=== PATIENT | female | born 1935 | race Caucasian/White ===

== ENCOUNTER 2017-08-17 02:57 | Emergency (ER) | payer MEDICARE, BC ==
[2017-08-17] MEDS ORDERED: Aspirin 81 MG Tab.Chew PO ONE (03:21)
[2017-08-17] MEDS ORDERED: Metoprolol Tartrate 5 MG/5 ML SDV IVPUSH ONE (03:32)
--- NOTE | 2017-08-17 03:38 | EDM.PDOC ---
ED HPI GENERAL MEDICAL PROBLEM - General Chief Complaint: Chest Pain Stated Complaint: CHEST PAIN Time Seen by Provider: 08/17/17 03:20 Source of Information: Reports: Patient History Limitations: Reports: No Limitations - History of Present Illness INITIAL COMMENTS - FREE TEXT/NARRATIVE: 81 years old female patient presented with chief complaint of chest pain started around 1 AM. Pressure-like sensation initially that has resolved and now feeling aching in the left side of his chest. Pain started when she was in the bed trying to fall asleep. No radiation. Presented when she sits still. [place] some palpitation and fast heart rate at that time but not anymore. Denies any shortness of breath. Denies any diaphoresis nausea or vomiting or dizziness.a history of cardiac bypass in 2003. She took 2 nitroglycerin at home which does not seem to be helping Chest Pain Score (Numeric/FACES): 2 - Related Data Allergies Allergy/AdvReac Type Severity Reaction Status Date / Time codeine AdvReac Nausea Verified 08/17/17 03:10 Home Meds: Home Meds Aspirin [Ziggy Chewable Aspirin] 1 tab PO DAILY 08/17/17 [History] Losartan Potassium 12.5 mg PO DAILY 08/17/17 [History] Metoprolol Succinate [Toprol XL] 1 tab PO BEDTIME 08/17/17 [History] Pravastatin [Pravachol] 1 tab PO BEDTIME 08/17/17 [History] Past Medical History HEENT History: Reports: Cataract Cardiovascular History: Reports: Bypass, CAD, High Cholesterol, Hypertension, Stents Gastrointestinal History: Reports: Colon Polyp Musculoskeletal History: Reports: Fracture Neurological History: Reports: Migraines Oncologic (Cancer) History: Reports: Breast - Past Surgical History HEENT Surgical History: Reports: Tonsillectomy Cardiovascular Surgical History: Reports: Coronary Artery Bypass, Coronary Artery Stent GI Surgical History: Reports: Appendectomy, Cholecystectomy, Colonoscopy Oncologic Surgical History: Reports: Lumpectomy Social & Family History - Tobacco Use Smoking Status *Q: Former Smoker Used Tobacco, but Quit: Yes Month Tobacco Last Used: 0 Tobacco Use Comment: hasn't smoked in 52 years. - Alcohol Use Days Per Week of Alcohol Use: 7 Number of Drinks Per Day: 2 Total Drinks Per Week: 14 - Recreational Drug Use Recreational Drug Use: No ED ROS GENERAL - Review of Systems Review Of Systems: ROS reveals no pertinent complaints other than HPI. Constitutional: Reports: No Symptoms HEENT: Reports: No Symptoms ED EXAM, GENERAL - Physical Exam Exam: See Below Exam Limited By: No Limitations General Appearance: Alert, WD/WN, No Apparent Distress Head: Atraumatic, Normocephalic Neck: Normal Inspection, Supple, Non-Tender, Full Range of Motion Respiratory/Chest: No Respiratory Distress, Lungs Clear, Normal Breath Sounds, No Accessory Muscle Use, Chest Non-Tender Cardiovascular: Normal Peripheral Pulses, No Edema, No Gallop, No JVD, No Murmur , No Rub, Tachycardia. No: Diastolic Murmur, Systolic Murmur, Gallop/S3 GI/Abdominal: Normal Bowel Sounds, Soft, Non-Tender, No Organomegaly, No Distention, No Abnormal Bruit, No Mass Extremities: Normal Inspection, Normal Range of Motion, Non-Tender, Normal Capillary Refill, No Pedal Edema Neurological: Alert, Oriented, CN II-XII Intact, Normal Cognition, Normal Gait, Normal Reflexes, No Motor/Sensory Deficits Psychiatric: Normal Affect, Normal Mood Skin Exam: Warm, Dry, Intact, Normal Color, No Rash Course - Vital Signs Last Recorded V/S: Last Vital Signs Temp 35.6 C 08/17/17 03:07 Pulse 66 08/17/17 04:11 Resp 16 08/17/17 04:11 BP 159/88 H 08/17/17 04:11 Pulse Ox 96 08/17/17 04:11 - Orders/Labs/Meds Orders: Active Orders 24 hr Category Date Time Status Cardiac Monitoring [RC] .As Directed Care 08/17/17 03:21 Active EKG Documentation Completion [RC] ASDIRECTED Care 08/17/17 03:52 Active EKG Documentation Completion [RC] ASDIRECTED Care 08/17/17 03:52 Active EKG Documentation Completion [RC] ASDIRECTED Care 08/17/17 03:54 Active Chest 1V Frontal [CR] Stat Exams 08/17/17 03:23 Taken EKG 12 Lead [EK] Urgent Ther 08/17/17 03:52 Ordered EKG 12 Lead [EK] Urgent Ther 08/17/17 03:52 Ordered EKG 12 Lead [EK] Urgent Ther 08/17/17 03:53 Ordered Labs: Laboratory Tests 08/17/17 08/17/17 Range/Units 03:27 03:27 WBC 5.9 (4.5-11.0) K/uL RBC 4.96 (3.30-5.50) M/uL Hgb 14.8 (12.0-15.0) g/dL Hct 43.9 (36.0-48.0) % MCV 89 (80-98) fL MCH 30 (27-31) pg MCHC 34 (32-36) % Plt Count 206 (150-400) K/uL Neut % (Auto) 43 (36-66) % Lymph % (Auto) 42 (24-44) % [place] % (Auto) 12 H (2-6) % Eos % (Auto) 2 (2-4) % Baso % (Auto) 1 (0-1) % Sodium 139 L (140-148) mmol/L Potassium 3.7 (3.6-5.2) mmol/L Chloride 104 (100-108) mmol/L Carbon Dioxide 27 (21-32) mmol/L Anion Gap 11.7 (5.0-14.0) mmol/L BUN 23 H (7-18) mg/dL Creatinine 0.9 (0.6-1.0) mg/dL Est Cr Clr Drug Dosing 43.77 mL/min Estimated GFR (MDRD) > 60 (>60) Glucose 108 H (74-106) mg/dL Calcium 8.4 L (8.5-10.1) mg/dL Magnesium 1.7 L (1.8-2.4) mg/dL Troponin I < 0.017 (0.000-0.056) ng/mL NT-Pro-B Natriuret Pep 588 H (5-450) pg/mL Meds: Medications Discontinued Medications Generic Name Dose Route Start Last Admin Trade Name Freq PRN Reason Stop Dose Admin Aspirin 324 mg 08/17/17 03:21 08/17/17 03:33 Aspirin PO 08/17/17 03:22 324 mg ONETIME ONE Administration Metoprolol Tartrate 5 mg 08/17/17 03:32 08/17/17 03:41 Lopressor IVPUSH 08/17/17 03:33 5 mg ONETIME ONE Administration Nitroglycerin 0.4 mg 08/17/17 04:02 08/17/17 04:09 Nitrostat SL 08/17/17 04:03 0.4 mg ONETIME ONE Administration - Re-Assessments/Exams Free Text/Narrative Re-Assessment/Exam: 08/17/17 03:36 Patient was seen and examined shortly after arrival. Stable. On monitoring manager. EKG shows atrial flutter was 2:1 AV block. Given 324 mg oral aspirin. Initially blood pressure was 212/over 100. History of whitecoat syndrome. Patient was given 5 mg IV metoprolol and one nitroglycerin. Heart rate slowed down and shows A. fib then converted back to sinus rhythm. Blood pressure markedly improved down to 158/57. Symptom completely resolved. Lab and imaging reviewed with the patient. No significant abnormalities. Magnesium is 1.7. EKG shows A. fib with RVR initially. No sign of acute ischemia. Last EKG shows sinus rhythm was bigeminy was noted. We do not have any available bed tonight at our hospital. Case was discussed with Dr. Akhtar hospitalist at [facility] and he accepted the transfer. Patient agrees with the plan. Stable for transfer for further management. Imaging reviewed with the patient. 08/17/17 04:42 Departure - Departure Time of Disposition: 04:48 Disposition: Left Without Being Seen 07 Clinical Impression: Atrial fibrillation with RVR, Chest pain Referrals: Marianne Caldera PA [Primary Care Provider] - Forms: ED Department Discharge - My Orders Last 24 Hours: My Active Orders 08/17/17 03:21 Cardiac Monitoring [RC] .As Directed 08/17/17 03:23 Chest 1V Frontal [CR] Stat 08/17/17 03:52 EKG Documentation Completion [RC] ASDIRECTED EKG Documentation Completion [RC] ASDIRECTED EKG 12 Lead [EK] Urgent EKG 12 Lead [EK] Urgent 08/17/17 03:53 EKG 12 Lead [EK] Urgent 08/17/17 03:54 EKG Documentation Completion [RC] ASDIRECTED - Assessment/Plan Last 24 Hours: My Active Orders 08/17/17 03:21 Cardiac Monitoring [RC] .As Directed 08/17/17 03:23 Chest 1V Frontal [CR] Stat 08/17/17 03:52 EKG Documentation Completion [RC] ASDIRECTED EKG Documentation Completion [RC] ASDIRECTED EKG 12 Lead [EK] Urgent EKG 12 Lead [EK] Urgent 08/17/17 03:53 EKG 12 Lead [EK] Urgent 08/17/17 03:54 EKG Documentation Completion [RC] ASDIRECTED Plan: Transferred [facility]
[2017-08-17] MEDS ORDERED: Nitroglycerin 0.4 MG Tab.SL SL ONE (04:02)
[2017-08-17 04:54] VITALS: BP 157/97
--- NOTE | 2017-08-17 09:01 | CR ---
Chest 1V Frontal HISTORY: Chest Pain COMPARISON: 03/06/2012 FINDINGS: Lungs appear clear and normally aerated. Heart size is felt to be within normal limits for the AP yifan hnique. Old median sternotomy changes and multiple mediastinal surgical clips are redemonstrated. No vascular redistribution or pleural fluid can be seen. Bony structures and soft tissues are unremarkab le. IMPRESSION: Old median sternotomy changes. No acute chest abnormality or significant interval change is identifie d.
== END 2017-08-17 05:30 ==
LOC: JP.ED 02:57
DX: I48.91 Unspecified atrial fibrillation (principal); I25.10 Atherosclerotic heart disease of native coronary artery without angina pectoris; E78.00 Pure hypercholesterolemia, unspecified; I10 Essential (primary) hypertension; G43.909 Migraine, unspecified, not intractable, without status migrainosus; Z95.5 Presence of coronary angioplasty implant and graft; Z95.1 Presence of aortocoronary bypass graft; Z90.49 Acquired absence of other specified parts of digestive tract; Z87.891 Personal history of nicotine dependence; Z79.82 Long term (current) use of aspirin; Z79.899 Other long term (current) drug therapy; Z88.5 Allergy status to narcotic agent
CPT/HCPCS: 36415; 71010; 80048; 83735; 83880; 84484; 85025; 93005; 93010; 93041; 96374; 99285; A9270; 99284; J3490

== ENCOUNTER 2018-03-26 14:39 | Observation (INO) | payer MEDICARE, BC ==
[2018-03-26] MEDS ORDERED: Aspirin 81 MG Tab.Chew PO ONE (14:46)
[2018-03-26] MEDS ORDERED: Nitroglycerin 0.4 MG Tab.SL SL PRN ×2 (14:51→17:38)
--- NOTE | 2018-03-26 15:22 | EDM.PDOC ---
ED HPI GENERAL MEDICAL PROBLEM - General Chief Complaint: Chest Pain Stated Complaint: CHEST PAIN Time Seen by Provider: 03/26/18 14:50 Source of Information: Reports: Patient, Family History Limitations: Reports: No Limitations - History of Present Illness INITIAL COMMENTS - FREE TEXT/NARRATIVE: Pt arrived after [place] where she developed chest tightness and rated her pain at a 8. She did have nitro along and she took one and she passed out very briefly. she then took 2 more nitros and she had no further problems. She was not sweaty. She did not vomit. She has a past history of a coronary bypass in 2003. She is painfree at this time. She was mildly sob. Onset: Today, Sudden, Other (pt was playing golf. ) Duration: Minutes:, Other ( she described this as chest tightness) Location: Reports: Chest Quality: Reports: Other ( tight. ) Severity: Moderate Worsens with: Reports: None Associated Symptoms: Reports: Chest Pain, Shortness of Breath Chest Pain Score (Numeric/FACES): 4 - Related Data Allergies Allergy/AdvReac Type Severity Reaction Status Date / Time codeine AdvReac Nausea Verified 08/17/17 03:10 Home Meds: Home Meds Aspirin [Ziggy Chewable Aspirin] 81 mg PO DAILY 08/17/17 [History] Losartan Potassium 12.5 mg PO DAILY 08/17/17 [History] Metoprolol Succinate [Toprol XL] 50 mg PO DAILY 08/17/17 [History] Pravastatin [Pravachol] 40 mg PO BEDTIME 08/17/17 [History] Amiodarone HCl [Pacerone] 400 mg PO DAILY 03/26/18 [History] Apixaban [Eliquis] 5 mg PO DAILY 03/26/18 [History] Calcium Carbonate/Vitamin D3 [Calcium 600 + Vit D 200] 1 tab PO DAILY 03/26/18 [ History] Furosemide 40 mg PO DAILY 03/26/18 [History] Nitroglycerin [Nitrostat] 0.4 mg PO ASDIRECTED 03/26/18 [History] Past Medical History HEENT History: Reports: Cataract Cardiovascular History: Reports: Bypass, CAD, High Cholesterol, Hypertension, Stents Respiratory History: Reports: Pneumonia, Recurrent Gastrointestinal History: Reports: Colon Polyp TURN LASTER History: Reports: Musculoskeletal History: Reports: Fracture Neurological History: Reports: Migraines Oncologic (Cancer) History: Reports: Breast - Past Surgical History HEENT Surgical History: Reports: Tonsillectomy Cardiovascular Surgical History: Reports: Coronary Artery Bypass, Coronary Artery Stent GI Surgical History: Reports: Appendectomy, Cholecystectomy, Colonoscopy Oncologic Surgical History: Reports: Lumpectomy Social & Family History - Tobacco Use Smoking Status *Q: Never Smoker - Caffeine Use Caffeine Use: Reports: None - Recreational Drug Use Recreational Drug Use: No ED ROS GENERAL - Review of Systems Review Of Systems: See Below Constitutional: Reports: Other (pt did have some chilling when she got back from the clinic today. She did have a cortisone injection in her left knee. ) HEENT: Reports: No Symptoms Respiratory: Reports: Shortness of Breath, Other ( She was mildly sob. ) Cardiovascular: Reports: No Symptoms Endocrine: Reports: No Symptoms GI/Abdominal: Reports: No Symptoms : Reports: No Symptoms Musculoskeletal: Reports: No Symptoms Skin: Reports: No Symptoms ED EXAM, GENERAL - Physical Exam Exam: See Below Free Text/Narrative:: pt arrived with a history of chest pain while playing golf. She took a nitro. and she did pass out. She then took 2 more nitros and tolerated them. She was alert and oriented on arrival and was painfree. Exam Limited By: No Limitations General Appearance: Alert, No Apparent Distress, Other (pupils are equal and reactive. ) Ears: Normal TMs Nose: Normal Inspection Throat/Mouth: Normal Inspection Head: Atraumatic Neck: Normal Inspection Respiratory/Chest: No Respiratory Distress Cardiovascular: Other ( slightly irreular rhythm. ) GI/Abdominal: Soft, Non-Tender (Female) Exam: Deferred Rectal (Female) Exam: Normal Exam Back Exam: Normal Inspection Extremities: Normal Inspection Neurological: Alert, Oriented, Normal Cognition Psychiatric: Normal Affect Course - Vital Signs Last Recorded V/S: Last Vital Signs Temp 35.3 C 03/26/18 14:50 Pulse 87 03/26/18 15:16 Resp 14 03/26/18 15:16 BP 102/61 03/26/18 15:16 Pulse Ox 96 03/26/18 15:16 - Orders/Labs/Meds Orders: Active Orders 24 hr Category Date Time Status EKG Documentation Completion [RC] ASDIRECTED Care 03/26/18 14:46 Active Chest 1V Frontal [CR] Stat Exams 03/26/18 14:47 Taken COMPREHENSIVE METABOLIC PN,CMP [CHEM] Urgent Lab 03/26/18 14:50 Received CREATINE KINASE,CK [CHEM] Urgent Lab 03/26/18 14:50 Received PRO B-TYPE NATRIUR PEPT,BNPPRO [CHEM] Urgent Lab 03/26/18 14:50 Received TROPONIN I [CHEM] Stat Lab 03/26/18 14:50 Received UA W/MICROSCOPIC [URIN] Urgent Lab 03/26/18 14:46 Ordered Nitroglycerin [Nitrostat] Med 03/26/18 14:51 Active 0.4 mg SL Q5M PRN EKG 12 Lead [EK] Routine Ther 03/26/18 14:46 Ordered Medication Orders Nitroglycerin (Nitrostat) 0.4 mg SL Q5M PRN PRN Reason: Chest Pain Labs: Laboratory Tests 03/26/18 Range/Units 14:50 WBC 10.8 (4.5-11.0) K/uL RBC 4.83 (3.30-5.50) M/uL Hgb 14.4 (12.0-15.0) g/dL Hct 43.0 (36.0-48.0) % MCV 89 (80-98) fL MCH 30 (27-31) pg MCHC 34 (32-36) % Plt Count 231 (150-400) K/uL Neut % (Auto) 75 H (36-66) % Lymph % (Auto) 15 L (24-44) % [place] % (Auto) 9 H (2-6) % Eos % (Auto) 0 L (2-4) % Baso % (Auto) 0 (0-1) % Meds: Medications Generic Name Dose Route Start Last Admin Trade Name Freq PRN Reason Stop Dose Admin Nitroglycerin 0.4 mg 03/26/18 14:51 Nitrostat SL Q5M PRN Chest Pain Discontinued Medications Generic Name Dose Route Start Last Admin Trade Name Freq PRN Reason Stop Dose Admin Aspirin 324 mg 03/26/18 14:46 03/26/18 14:54 Aspirin PO 03/26/18 14:47 324 mg ONETIME ONE Administration - Re-Assessments/Exams Free Text/Narrative Re-Assessment/Exam: 03/26/18 15:47 pt had a normal trop. She has a left bundle branch block. She had some chills earlier after she got the cortisone injection. She had a injection in her left knee. Departure - Departure Time of Disposition: 15:48 Disposition: Admitted As Inpatient 68 Condition: Fair Clinical Impression: Exercise-induced angina, Syncope Referrals: PCP,None [Ordering Only Provider] - Care Plan Goals: admit to Dr watkins. - My Orders Last 24 Hours: My Active Orders 03/26/18 14:46 EKG Documentation Completion [RC] ASDIRECTED UA W/MICROSCOPIC [URIN] Urgent EKG 12 Lead [EK] Routine 03/26/18 14:47 Chest 1V Frontal [CR] Stat 03/26/18 14:50 COMPREHENSIVE METABOLIC PN,CMP [CHEM] Urgent CREATINE KINASE,CK [CHEM] Urgent PRO B-TYPE NATRIUR PEPT,BNPPRO [CHEM] Urgent TROPONIN I [CHEM] Stat 03/26/18 14:51 Nitroglycerin [Nitrostat] 0.4 mg SL Q5M PRN - Assessment/Plan Last 24 Hours: My Active Orders 03/26/18 14:46 EKG Documentation Completion [RC] ASDIRECTED UA W/MICROSCOPIC [URIN] Urgent EKG 12 Lead [EK] Routine 03/26/18 14:47 Chest 1V Frontal [CR] Stat 03/26/18 14:50 COMPREHENSIVE METABOLIC PN,CMP [CHEM] Urgent CREATINE KINASE,CK [CHEM] Urgent PRO B-TYPE NATRIUR PEPT,BNPPRO [CHEM] Urgent TROPONIN I [CHEM] Stat 03/26/18 14:51 Nitroglycerin [Nitrostat] 0.4 mg SL Q5M PRN
--- NOTE | 2018-03-26 16:37 | PCM.HP ---
H&P History of Present Illness - General Date of Service: 03/26/18 Admit Problem/Dx: Admission Diagnosis/Problem Admission Diagnosis/Problem Chest pain Source of Information: Patient, Family, Provider, RN Notes Reviewed History Limitations: Reports: No Limitations - History of Present Illness Initial Comments - Free Text/Narative: Ms. Gallegos is an 82-year-old woman who is admitted through the emergency department observation status for further evaluation and management of chest pain as well as a syncopal episode. She has a known history of coronary artery disease and is status post coronary artery bypass surgery done approximately 14 years ago. She had difficulty with claudication earlier this year and approximately 2 months ago underwent coronary angiogram, she was told at that time that the results look good and she did not require further intervention. She did have angioplasty procedures done in both legs with very good result and resolution of claudication. She does take nitroglycerin for episodes of chest pain a few times each year. She was out golfing this afternoon when she noted symptoms of mild shortness of breath with activity that she usually would not have. Half hour after that started she began to experience chest pressure, over the course of a half hour the chest pressure became very severe. The chest pressure did not radiate and remained fairly constant throughout that time.she decided she should do something about the pain and decided to stop her golf round. She did take one sublingual nitroglycerin with no significant improvement in symptoms so she took a second one. She became fairly nauseated and then had a syncopal episode that lasted 1-2 minutes. After that she was brought into the emergency department and on the drive into the third nitroglycerin which did seem to help somewhat. She still had some chest pain when she arrived at the emergency department but it resolved shortly thereafter. Initial troponin level is within normal range, EKG shows a left bundle branch block which is not new. Risk factors for coronary artery disease include a positive family history, hypertension, and hypercholesterolemia. Calculated heart score is 7 . Chest Pain Score (Numeric/FACES): 4 - Related Data Allergies/Adverse Reactions: Allergies Allergy/AdvReac Type Severity Reaction Status Date / Time codeine AdvReac Nausea Verified 08/17/17 03:10 Home Medications: Home Meds Aspirin [Ziggy Chewable Aspirin] 81 mg PO DAILY 08/17/17 [History] Losartan Potassium 12.5 mg PO DAILY 08/17/17 [History] Metoprolol Succinate [Toprol XL] 50 mg PO DAILY 08/17/17 [History] Pravastatin [Pravachol] 40 mg PO BEDTIME 08/17/17 [History] Amiodarone HCl [Pacerone] 400 mg PO DAILY 03/26/18 [History] Apixaban [Eliquis] 5 mg PO DAILY 03/26/18 [History] Calcium Carbonate/Vitamin D3 [Calcium 600 + Vit D 200] 1 tab PO DAILY 03/26/18 [ History] Furosemide 40 mg PO DAILY 03/26/18 [History] Nitroglycerin [Nitrostat] 0.4 mg PO ASDIRECTED 03/26/18 [History] Past Medical History HEENT History: Reports: Cataract Cardiovascular History: Reports: Bypass, CAD, High Cholesterol, Hypertension, Stents Respiratory History: Reports: Pneumonia, Recurrent Gastrointestinal History: Reports: Colon Polyp [employer] History: Reports: Musculoskeletal History: Reports: Fracture Neurological History: Reports: Migraines Oncologic (Cancer) History: Reports: Breast - Past Surgical History HEENT Surgical History: Reports: Tonsillectomy Cardiovascular Surgical History: Reports: Coronary Artery Bypass, Coronary Artery Stent GI Surgical History: Reports: Appendectomy, Cholecystectomy, Colonoscopy Oncologic Surgical History: Reports: Lumpectomy Social & Family History - Tobacco Use Smoking Status *Q: Never Smoker - Caffeine Use Caffeine Use: Reports: None - Recreational Drug Use Recreational Drug Use: No H&P Review of Systems - Review of Systems: Review Of Systems: See Below General: Denies: Fever, Chills, Weakness, Diaphoresis HEENT: Reports: No Symptoms Pulmonary: Reports: Shortness of Breath. Denies: Wheezing, Pleuritic Chest Pain , Cough, Sputum, Hemoptysis Cardiovascular: Reports: Chest Pain, Syncope. Denies: Palpitations, Dyspnea on Exertion, Orthopnea, PND, Edema, Lightheadedness Gastrointestinal: Reports: Nausea. Denies: Abdominal Pain, Constipation, Diarrhea, Decreased Appetite, Difficulty Swallowing, Distension, Vomiting Genitourinary: Reports: No Symptoms Musculoskeletal: Reports: No Symptoms Skin: Reports: No Symptoms Psychiatric: Reports: No Symptoms Neurological: Reports: No Symptoms Hematologic/Lymphatic: Reports: No Symptoms Immunologic: Reports: No Symptoms Exam - Exam Exam: See Below - Vital Signs Vital Signs: Last Vital Signs Temp 95.6 F 05/15/18 14:50 Pulse 87 03/26/18 15:16 Resp 14 03/26/18 15:16 BP 102/61 03/26/18 15:16 Pulse Ox 96 03/26/18 15:16 Weight: 145 lb - Exam Quality Assessment: DVT Prophylaxis General: Alert, Oriented, Cooperative HEENT: Conjunctiva Clear, Hearing Intact, Mucosa Moist & [place], Normal Nasal Septum, Posterior Pharynx Clear, Pupils Equal Neck: Supple, Trachea Midline, +2 Carotid Pulse wo Bruit Lungs: Clear to Auscultation, Normal Respiratory Effort Cardiovascular: Regular Rate, Regular Rhythm, Normal S1, Normal S2. No: Systolic Murmur, Diastolic Murmur GI/Abdominal Exam: Soft, Non-Tender, No Organomegaly, No Distention Back Exam: Normal Inspection, Full Range of Motion Extremities: Non-Tender, No Pedal Edema Skin: Warm, Dry, Intact Neurological: Cranial Nerves Intact, Strength Equal Bilateral, Normal Speech, Normal Tone, Sensation Intact. No: Focal Deficit Neuro Extensive - Mental Status: Alert, Oriented x3, Normal Mood/Affect, Normal Cognition, Memory Intact - Patient Data Lab Results Last 24 hrs: Laboratory Results - last 24 hr 03/26/18 03/26/18 03/26/18 Range/Units 14:50 14:50 14:50 WBC 10.8 (4.5-11.0) K/uL RBC 4.83 (3.30-5.50) M/uL Hgb 14.4 (12.0-15.0) g/dL Hct 43.0 (36.0-48.0) % MCV 89 (80-98) fL MCH 30 (27-31) pg MCHC 34 (32-36) % Plt Count 231 (150-400) K/uL Neut % (Auto) 75 H (36-66) % Lymph % (Auto) 15 L (24-44) % [place] % (Auto) 9 H (2-6) % Eos % (Auto) 0 L (2-4) % Baso % (Auto) 0 (0-1) % Sodium 142 (140-148) mmol/L Potassium 3.6 (3.6-5.2) mmol/L Chloride 102 (100-108) mmol/L Carbon Dioxide 30 (21-32) mmol/L Anion Gap 10.5 (5.0-14.0) mmol/L BUN 31 H (7-18) mg/dL Creatinine 1.2 H (0.6-1.0) mg/dL Est Cr Clr Drug Dosing 32.29 mL/min Estimated GFR (MDRD) 43 L (>60) Glucose 104 (74-106) mg/dL Calcium 8.2 L (8.5-10.1) mg/dL Total Bilirubin 1.5 H (0.2-1.0) mg/dL AST 20 (15-37) U/L ALT 24 (12-78) U/L Alkaline Phosphatase 88 (46-116) U/L Creatine Kinase 79 (26-192) U/L Troponin I < 0.017 (0.000-0.056) ng/mL NT-Pro-B Natriuret Pep 815 H (5-450) pg/mL Total Protein 7.1 (6.4-8.2) g/dL Albumin 3.7 (3.4-5.0) g/dL Globulin 3.4 (2.3-3.5) g/dL Albumin/Globulin Ratio 1.1 L (1.2-2.2) Urine Color Urine Appearance Urine pH (4.5-8.0) Ur Specific [place] (1.008-1.030) Urine Protein (NEGATIVE) mg/dL Urine Glucose (UA) (NEGATIVE) mg/dL Urine Ketones (NEGATIVE) mg/dL Urine Occult Blood (NEGATIVE) Urine Nitrite (NEGATIVE) Urine Bilirubin (NEGATIVE) Urine Urobilinogen (NORMAL) mg/dL Ur Leukocyte Esterase (NEGATIVE) Urine RBC (0-5) Urine WBC (0-5) Ur Epithelial Cells Amorphous Sediment Urine Bacteria Urine Mucus 03/26/18 Range/Units 15:33 WBC (4.5-11.0) K/uL RBC (3.30-5.50) M/uL Hgb (12.0-15.0) g/dL Hct (36.0-48.0) % MCV (80-98) fL MCH (27-31) pg MCHC (32-36) % Plt Count (150-400) K/uL Neut % (Auto) (36-66) % Lymph % (Auto) (24-44) % [place] % (Auto) (2-6) % Eos % (Auto) (2-4) % Baso % (Auto) (0-1) % Sodium (140-148) mmol/L Potassium (3.6-5.2) mmol/L Chloride (100-108) mmol/L Carbon Dioxide (21-32) mmol/L Anion Gap (5.0-14.0) mmol/L BUN (7-18) mg/dL Creatinine (0.6-1.0) mg/dL Est Cr Clr Drug Dosing mL/min Estimated GFR (MDRD) (>60) Glucose (74-106) mg/dL Calcium (8.5-10.1) mg/dL Total Bilirubin (0.2-1.0) mg/dL AST (15-37) U/L ALT (12-78) U/L Alkaline Phosphatase (46-116) U/L Creatine Kinase (26-192) U/L Troponin I (0.000-0.056) ng/mL NT-Pro-B Natriuret Pep (5-450) pg/mL Total Protein (6.4-8.2) g/dL Albumin (3.4-5.0) g/dL Globulin (2.3-3.5) g/dL Albumin/Globulin Ratio (1.2-2.2) Urine Color Yellow Urine Appearance Slightly cloudy Urine pH 5.0 (4.5-8.0) Ur Specific [place] 1.020 (1.008-1.030) Urine Protein Negative (NEGATIVE) mg/dL Urine Glucose (UA) Normal (NEGATIVE) mg/dL Urine Ketones Negative (NEGATIVE) mg/dL Urine Occult Blood Moderate (NEGATIVE) Urine Nitrite Negative (NEGATIVE) Urine Bilirubin Negative (NEGATIVE) Urine Urobilinogen Normal (NORMAL) mg/dL Ur Leukocyte Esterase Moderate (NEGATIVE) Urine RBC 0-5 (0-5) Urine WBC 0-5 (0-5) Ur Epithelial Cells Rare Amorphous Sediment Not seen Urine Bacteria Rare Urine Mucus Not seen Result Diagrams: 03/26/18 14:50 03/26/18 14:50 *Q Meaningful Use (ADM) - VTE *Q VTE Pharmacological Contraindications *Q: High INR Value - VTE Risk Assess *Q Each Risk Factor Represents 1 Point: None Total Score 1 Point Risk Factors: 0 Each Risk Factor Represents 2 Points: None Total Score 2 Point Risk Factors: 0 Each Risk Factor Represents 3 Points: Age 75 Years or Greater Total Score 3 Point Risk Factors: 3 Each Risk Factor Represents 5 Points: None Total Score 5 Point Risk Factors: 0 Venous Thromboembolism Risk Factor Score *Q: 3 Problem List Initiated/Reviewed/Updated: Yes Orders Last 24hrs: Active Orders 24 hr Category Date Time Status Patient Status Manage Transfer [TRANSFER] Routine ADT 03/26/18 16:28 Active EKG Documentation Completion [RC] ASDIRECTED Care 03/26/18 14:46 Active Chest 1V Frontal [CR] Stat Exams 03/26/18 14:47 Taken UA W/MICROSCOPIC [URIN] Urgent Lab 03/26/18 15:33 Ordered Nitroglycerin [Nitrostat] Med 03/26/18 14:51 Active 0.4 mg SL Q5M PRN Resuscitation Status Routine Resus Stat 03/26/18 16:31 Ordered EKG 12 Lead [EK] Routine Ther 03/26/18 14:46 Ordered Medication Orders Nitroglycerin (Nitrostat) 0.4 mg SL Q5M PRN PRN Reason: Chest Pain Assessment/Plan Comment:: ASSESSMENT AND PLAN CHEST PAIN-occurring in this 82-year-old woman with a known history of coronary artery disease. -Observation admission -Obtain records from recent angiogram -Nitroglycerin and morphine as needed for recurrent pain -Serial troponin levels -Exercise Cardiolite study in a.m. SYNCOPE-occurred in the setting of chest pain and having taken to sublingual nitroglycerin, likely secondary to medication effect -Cardiac monitoring -Orthostatic vital signs HYPERTENSION -Continue outpatient medications PERIPHERAL ARTERIAL DISEASE-status post angioplasty in each leg, with good result in resolution of claudication PAROXYSMAL ATRIAL FIBRILLATION -Continue outpatient therapy with amiodarone and Eliquis MAINTENANCE ISSUES -DVT prophylaxis;Current therapy with Eliquis which should provide adequate DVT prophylaxis -GI prophylaxis;Not indicated -Pratt catheter;Not indicated -Nutrition;2 g sodium diet -Nicotine dependence;Not required CODE STATUS-FULL CODE ADMISSION STATUS-this patient will be admitted to observation status, expect no more than a one night hospital stay for evaluation and management of problems as outlined above. DISPOSITION-anticipate discharge to home after the hospital stay. PRIMARY CARE PROVIDER-Ade Caldera
[2018-03-26] MEDS ORDERED: Sodium Chloride 0.9% 10 ML Syringe FLUSH PRN (17:38)
[2018-03-26] MEDS ORDERED: Ondansetron 4 MG/2 ML SDV IV PRN (17:38)
[2018-03-26] MEDS ORDERED: Morphine 2 MG/ML Syringe IVPUSH PRN (17:38)
[2018-03-26] MEDS ORDERED: Pravastatin 20 MG Tab PO SCH (21:00)
[2018-03-26] MEDS: Acetaminophen 325 MG Tab PO PRN (21:28)
[2018-03-27] MEDS: Acetaminophen 325 MG Tab PO PRN (07:46)
[2018-03-27] MEDS ORDERED: Furosemide 40 MG Tab**POM PO SCH (09:00)
[2018-03-27] MEDS ORDERED: Losartan 50 MG Tab PO SCH (09:00)
[2018-03-27] MEDS ORDERED: Aspirin 81 MG Tab.Chew PO SCH (09:00)
[2018-03-27] MEDS ORDERED: Amiodarone 200 MG Tab PO SCH (09:00)
[2018-03-27] MEDS ORDERED: APIXABAN 5 MG PO SCH (09:00)
[2018-03-27] MEDS ORDERED: Aspirin 81 MG Tab.EC PO SCH (09:00)
--- NOTE | 2018-03-27 09:24 | PCM.PN ---
- General Info Date of Service: 03/27/18 Subjective Update: Ms. Gallegos has been stable since admission, no further symptoms of chest pain or pressure. No significant dysrhythmias identified thus far and she has been hemodynamically stable. Serial troponin levels have been within normal range. She is experiencing some soreness in her left shoulder, likely that she hit this when she experienced her syncopal episode. Exercise Cardiolite study is pending - Review of Systems General: Denies: Fever, Weakness, Chills Cardiovascular: Reports: No Symptoms Gastrointestinal: Reports: No Symptoms Genitourinary: Reports: No Symptoms Musculoskeletal: Reports: Shoulder Pain - Patient Data Vitals - Most Recent: Last Vital Signs Temp 96.4 F 03/27/18 07:00 Pulse 73 03/27/18 07:00 Resp 18 03/27/18 07:00 BP 150/72 H 03/27/18 07:00 Pulse Ox 94 L 03/27/18 07:00 Orthostatic Blood Pressure [ 172/84 Standing] Orthostatic Blood Pressure [ 170/75 Sitting] Orthostatic Blood Pressure [ 155/65 Supine] Weight - Most Recent: 150 lb I&O - Last 24 Hours: Intake & Output 03/26/18 03/27/18 03/27/18 22:59 06:59 14:59 Intake Total 480 Balance 480 Lab Results Last 24 Hours: Laboratory Results - last 24 hr 03/26/18 03/26/18 03/26/18 Range/Units 14:50 14:50 14:50 WBC 10.8 (4.5-11.0) K/uL RBC 4.83 (3.30-5.50) M/uL Hgb 14.4 (12.0-15.0) g/dL Hct 43.0 (36.0-48.0) % MCV 89 (80-98) fL MCH 30 (27-31) pg MCHC 34 (32-36) % Plt Count 231 (150-400) K/uL Neut % (Auto) 75 H (36-66) % Lymph % (Auto) 15 L (24-44) % [place] % (Auto) 9 H (2-6) % Eos % (Auto) 0 L (2-4) % Baso % (Auto) 0 (0-1) % Sodium 142 (140-148) mmol/L Potassium 3.6 (3.6-5.2) mmol/L Chloride 102 (100-108) mmol/L Carbon Dioxide 30 (21-32) mmol/L Anion Gap 10.5 (5.0-14.0) mmol/L BUN 31 H (7-18) mg/dL Creatinine 1.2 H (0.6-1.0) mg/dL Est Cr Clr Drug Dosing 32.29 mL/min Estimated GFR (MDRD) 43 L (>60) Glucose 104 (74-106) mg/dL Calcium 8.2 L (8.5-10.1) mg/dL Total Bilirubin 1.5 H (0.2-1.0) mg/dL AST 20 (15-37) U/L ALT 24 (12-78) U/L Alkaline Phosphatase 88 (46-116) U/L Creatine Kinase 79 (26-192) U/L Troponin I < 0.017 (0.000-0.056) ng/mL NT-Pro-B Natriuret Pep 815 H (5-450) pg/mL Total Protein 7.1 (6.4-8.2) g/dL Albumin 3.7 (3.4-5.0) g/dL Globulin 3.4 (2.3-3.5) g/dL Albumin/Globulin Ratio 1.1 L (1.2-2.2) Urine Color Urine Appearance Urine pH (4.5-8.0) Ur Specific [place] (1.008-1.030) Urine Protein (NEGATIVE) mg/dL Urine Glucose (UA) (NEGATIVE) mg/dL Urine Ketones (NEGATIVE) mg/dL Urine Occult Blood (NEGATIVE) Urine Nitrite (NEGATIVE) Urine Bilirubin (NEGATIVE) Urine Urobilinogen (NORMAL) mg/dL Ur Leukocyte Esterase (NEGATIVE) Urine RBC (0-5) Urine WBC (0-5) Ur Epithelial Cells Amorphous Sediment Urine Bacteria Urine Mucus 03/26/18 03/26/18 03/27/18 Range/Units 15:33 21:15 04:30 WBC (4.5-11.0) K/uL RBC (3.30-5.50) M/uL Hgb (12.0-15.0) g/dL Hct (36.0-48.0) % MCV (80-98) fL MCH (27-31) pg MCHC (32-36) % Plt Count (150-400) K/uL Neut % (Auto) (36-66) % Lymph % (Auto) (24-44) % [place] % (Auto) (2-6) % Eos % (Auto) (2-4) % Baso % (Auto) (0-1) % Sodium (140-148) mmol/L Potassium (3.6-5.2) mmol/L Chloride (100-108) mmol/L Carbon Dioxide (21-32) mmol/L Anion Gap (5.0-14.0) mmol/L BUN (7-18) mg/dL Creatinine (0.6-1.0) mg/dL Est Cr Clr Drug Dosing mL/min Estimated GFR (MDRD) (>60) Glucose (74-106) mg/dL Calcium (8.5-10.1) mg/dL Total Bilirubin (0.2-1.0) mg/dL AST (15-37) U/L ALT (12-78) U/L Alkaline Phosphatase (46-116) U/L Creatine Kinase (26-192) U/L Troponin I < 0.017 < 0.017 (0.000-0.056) ng/mL NT-Pro-B Natriuret Pep (5-450) pg/mL Total Protein (6.4-8.2) g/dL Albumin (3.4-5.0) g/dL Globulin (2.3-3.5) g/dL Albumin/Globulin Ratio (1.2-2.2) Urine Color Yellow Urine Appearance Slightly cloudy Urine pH 5.0 (4.5-8.0) Ur Specific [place] 1.020 (1.008-1.030) Urine Protein Negative (NEGATIVE) mg/dL Urine Glucose (UA) Normal (NEGATIVE) mg/dL Urine Ketones Negative (NEGATIVE) mg/dL Urine Occult Blood Moderate (NEGATIVE) Urine Nitrite Negative (NEGATIVE) Urine Bilirubin Negative (NEGATIVE) Urine Urobilinogen Normal (NORMAL) mg/dL Ur Leukocyte Esterase Moderate (NEGATIVE) Urine RBC 0-5 (0-5) Urine WBC 0-5 (0-5) Ur Epithelial Cells Rare Amorphous Sediment Not seen Urine Bacteria Rare Urine Mucus Not seen Med Orders - Current: Current Medications Acetaminophen (Tylenol) 650 mg PO Q4H PRN PRN Reason: Pain (Mild 1-3)/fever Last Admin: 03/27/18 07:46 Dose: 650 mg Amiodarone HCl (Cordarone) 400 mg PO DAILY DARSHAN Aspirin (Halfprin) 81 mg PO DAILY DARSHAN Furosemide (Lasix) 40 mg PO DAILY DARSHAN Losartan Potassium (Cozaar) 12.5 mg PO DAILY DARSHAN Morphine Sulfate (Morphine) 2 mg IVPUSH Q30M PRN PRN Reason: Chest Pain Nitroglycerin (Nitrostat) 0.4 mg SL Q5M PRN PRN Reason: Chest Pain Stop: 03/27/18 16:34 Apixaban (Elicuis) 5 (Mg TabPom) 5 mg PO DAILY DARSHAN Ondansetron HCl (Zofran) 4 mg IV Q4H PRN PRN Reason: Nausea/Vomiting Pravastatin Sodium (Pravachol) 40 mg PO BEDTIME DARSHAN Senna/Docusate Sodium (Senna Plus) 1 tab PO BID PRN PRN Reason: Constipation Sodium Chloride (Saline Flush) 10 ml FLUSH ASDIRECTED PRN PRN Reason: Keep Vein Open Discontinued Medications Aspirin (Aspirin) 324 mg PO ONETIME ONE Stop: 03/26/18 14:47 Last Admin: 03/26/18 14:54 Dose: 324 mg Aspirin (Aspirin) 81 mg PO DAILY DARSHAN Nitroglycerin (Nitrostat) 0.4 mg SL Q5M PRN PRN Reason: Chest Pain - Exam Quality Assessment: DVT Prophylaxis General: Alert, Oriented, Cooperative, No Acute Distress Lungs: Clear to Auscultation, Normal Respiratory Effort Cardiovascular: Regular Rate, Regular Rhythm, No Murmurs GI/Abdominal Exam: Soft, Non-Tender, No Organomegaly, No Distention Extremities: Non-Tender, No Pedal Edema Skin: Warm, Dry, Intact - Problem List Review Problem List Initiated/Reviewed/Updated: Yes - My Orders Last 24 Hours: My Active Orders 03/26/18 16:31 Resuscitation Status Routine 03/26/18 17:38 Patient Status [ADT] Routine Ambulate [RC] QID Cardiac Education [RC] Click to Edit Cardiac Monitoring [RC] Q6HR Height and Weight [RC] DAILY Intake and Output [RC] QSHIFT Notify Provider Vital Signs [RC] ASDIRECTED Orthostatic Vital Signs [RC] .PRN Oxygen Therapy [RC] PRN Up With Assistance [RC] ASDIRECTED Up to Chair [RC] QID VTE/DVT Education [RC] Per Unit Routine Vital Signs [RC] Q4H Acetaminophen [Tylenol] 650 mg PO Q4H PRN Docusate Sodium/Sennosides [Senna Plus] 1 tab PO BID PRN Morphine 2 mg IVPUSH Q30M PRN Nitroglycerin [Nitrostat] 0.4 mg SL Q5M PRN Ondansetron [Zofran] 4 mg IV Q4H PRN Sodium Chloride 0.9% [Saline Flush] 10 ml FLUSH ASDIRECTED PRN Saline Lock Insert [OM.PC] Routine VTE Pharmacological Contraindications [AST] Per Unit Routine 03/26/18 21:00 Pravastatin [Pravachol] 40 mg PO BEDTIME 03/26/18 Dinner 2 Gram Sodium Diet [DIET] 03/27/18 09:00 Amiodarone [Cordarone] 400 mg PO DAILY Apixaban 5 mg PO DAILY Aspirin [Halfprin] 81 mg PO DAILY Furosemide [Lasix] 40 mg PO DAILY Losartan [Cozaar] 12.5 mg PO DAILY 03/27/18 09:15 Myocardial Perf Spect Multi [NM] Urgent - Plan Plan:: ASSESSMENT AND PLAN CHEST PAIN-no recurrence of chest pain since admission, serial troponin levels within normal range. Angiogram results from September obtained and showed no significant blockage at that time -Nitroglycerin and morphine as needed for recurrent pain -Serial troponin levels -Exercise Cardiolite study today SYNCOPE-no symptoms of lightheadedness since admission, no significant drop in blood pressure with orthostatic vital signs or significant dysrhythmias identified on monitoring -Cardiac monitoring -Orthostatic vital signs HYPERTENSION -Continue outpatient medications PERIPHERAL ARTERIAL DISEASE-status post angioplasty in each leg, with good result in resolution of claudication PAROXYSMAL ATRIAL FIBRILLATION -Continue outpatient therapy with amiodarone and Eliquis MAINTENANCE ISSUES -DVT prophylaxis;Current therapy with Eliquis which should provide adequate DVT prophylaxis -GI prophylaxis;Not indicated -Pratt catheter;Not indicated -Nutrition;2 g sodium diet -Nicotine dependence;Not required CODE STATUS-FULL CODE ADMISSION STATUS-this patient will be admitted to observation status, expect no more than a one night hospital stay for evaluation and management of problems as outlined above. DISPOSITION-anticipate discharge to home after the hospital stay. PRIMARY CARE PROVIDER-Ade Caldera
--- NOTE | 2018-03-27 09:30 | CR ---
Chest 1V Frontal FINDINGS: Intact sternal wires are demonstrated. The heart and vascular structures are normal in appe arance. No infiltrates or effusions are demonstrated. The skeletal structures are unremarkable. IMPRESSION: 1. No acute findings.
--- NOTE | 2018-03-27 13:55 | NM ---
Nuclear medicine cardiac exercise stress test. History: Chest pain. Technique: The patient was stressed with exercise on the treadmill. The patient received intravenousl y 10.79 millicuries of technetium 99 Myoview followed by rest imaging and 28.9 millicuries followed by stress imaging. The target heart rate is 119 bpm. The maximum heart rate achieved is 136 bpm. Findings: There is a uniform distribution of the radiopharmaceutical on both the stress and rest imag es. There are no findings of acute or chronic ischemia. There is normal wall motion. The ejection fra ction is within normal limits measuring 62%. Impression: 1. Negative exam.
--- NOTE | 2018-03-27 14:32 | STRESS ---
DATE OF SERVICE: 03/27/2018 PROCEDURE: Exercise Cardiolite study. TECHNIQUE: Ms. Gallegos was exercised for 4 minutes and 2 seconds on the Denny protocol for the exercise portion of exercise Cardiolite study. She completed 1 minute of stage II at 2.5 miles/hour and 12 degrees elevation. Test was stopped after she reached greater than 85% of predicted maximal heart rate. She experienced symptoms of shortness of breath, but denied any chest pain or pressure. She was able to reach a rate pressure product of 26,900 and a workload of 7.0 METS. Resting heart rate was 88 and went to 136 with exercise. This was equal to 96% of predicted maximal heart rate. Resting blood pressure was 150/78 and went to 198/86 with exercise. Resting ECG, sinus rhythm, rate of 77. There is a left axis deviation, prolongation of the QRS interval, and pattern consistent with underlying left bundle-branch block with associated ST-segment changes. Similar findings were seen on the post hyperventilation and standing ECGs. She was noted to have frequent premature atrial complexes throughout the monitoring period and occasional premature ventricular complexes. This study was nondiagnostic because of baseline left bundle-branch block. No other dysrhythmias were noted during the monitoring. She did experience symptoms as reported above. IMPRESSION: 1. Inconclusive nondiagnostic treadmill exercise portion of exercise Cardiolite study secondary to baseline left bundle-branch block as well as relatively low level of exercise. 2. Interpretation of the Cardiolite portion of the study is pending at this time. Harley Simmons MD /[id number]
[2018-03-27 15:29] VITALS: BP 110/53
--- NOTE | 2018-03-27 16:44 | PCM.DCSUM1 ---
Discharge Summary - Hospital Course Brief History: Ms. Gallegos is an 82-year-old woman who was admitted through the emergency department for further evaluation and management of a syncopal episode and chest pain. - Discharge Data Discharge Date: 03/27/18 Discharge Disposition: Home, Self-Care 01 Condition: Fair - Discharge Diagnosis/Problem(s) (1) Coronary artery disease SNOMED Code(s): 83315392 ICD Code: I25.10 - ATHSCL HEART DISEASE OF [place] CORONARY ARTERY W/O ANG PCTRS Status: Acute Current Visit: Yes (2) Chest pain SNOMED Code(s): 36104755 ICD Code: R07.9 - CHEST PAIN, UNSPECIFIED Status: Acute Current Visit: Yes (3) Syncope SNOMED Code(s): 929822375 ICD Code: R55 - SYNCOPE AND COLLAPSE Status: Acute Current Visit: Yes (4) History of atrial fibrillation SNOMED Code(s): 685008752 ICD Code: Z86.79 - PERSONAL HISTORY OF OTHER DISEASES OF THE CIRCULATORY SYSTEM Status: Chronic Current Visit: No - Patient Summary/Data Hospital Course: Ms. Gallegos is an 82-year-old woman who is admitted through the emergency department to observation status for further evaluation and management of chest pain as well as a syncopal episode. She has a known history of coronary artery disease and is status post coronary artery bypass surgery done approximately 14 years ago. She had difficulty with claudication earlier this year and approximately 6 months ago underwent coronary angiogram, she was told at that time that the results look good and she did not require further intervention. She did have angioplasty procedures done in both legs with very good result and resolution of claudication. She does take nitroglycerin for episodes of chest pain a few times each year. She was out golfing this afternoon when she noted symptoms of mild shortness of breath with activity that she usually would not have. Half hour after that started she began to experience chest pressure, over the course of a half hour the chest pressure became very severe. The chest pressure did not radiate and remained fairly constant throughout that time. She decided she should do something about the pain and decided to stop her golf round. She did take one sublingual nitroglycerin with no significant improvement in symptoms so she took a second one. She became fairly nauseated and then had a syncopal episode that lasted 1-2 minutes. After that she was brought into the emergency department and on the drive into the third nitroglycerin which did seem to help somewhat. She still had some chest pain when she arrived at the emergency department but it resolved shortly thereafter. Initial troponin level is within normal range, EKG shows a left bundle branch block which is not new. Risk factors for coronary artery disease include a positive family history, hypertension, and hypercholesterolemia. Calculated heart score is 7 . She was admitted to observation status and placed on cardiac monitoring. Serial troponin levels were obtained all of which remained within normal range. She was feeling well the following morning and denied any symptoms of lightheadedness or recurrent chest pain. Cardiac monitoring and showed no significant dysrhythmias and she did not have significant drop in blood pressure with orthostatic vital signs. Exercise Cardiolite study was performed, she was able to exercise into the second stage of the Denny protocol, study was nondiagnostic because the baseline left bundle branch block. Cardiolite portion the study showed no evidence of ischemia or previous infarct, estimated ejection fraction of 62%. She will remain on her usual medications and will be discharged home. Activity will be as tolerated and she will resume her usual diet. Follow-up appointment will be scheduled with her primary care provider within one week. She will return immediately if she has further episodes of lightheadedness or chest pain. - Patient Instructions Diet: Heart Healthy Diet Activity: As Tolerated Other/Special Instructions: Please schedule follow-up appointment with primary care provider within one week. - Discharge Plan Home Medications: Home Meds Aspirin [Ziggy Chewable Aspirin] 81 mg PO DAILY 08/17/17 [History] Losartan Potassium 12.5 mg PO DAILY 08/17/17 [History] Metoprolol Succinate [Toprol XL] 50 mg PO DAILY 08/17/17 [History] Pravastatin [Pravachol] 40 mg PO BEDTIME 08/17/17 [History] Amiodarone HCl [Pacerone] 400 mg PO DAILY 03/26/18 [History] Apixaban [Eliquis] 5 mg PO DAILY 03/26/18 [History] Calcium Carbonate/Vitamin D3 [Calcium 600 + Vit D 200] 1 tab PO DAILY 03/26/18 [ History] Furosemide 40 mg PO DAILY 03/26/18 [History] Nitroglycerin [Nitrostat] 0.4 mg PO ASDIRECTED 03/26/18 [History] Referrals: Marianne Caldera PA [Primary Care Provider] - - Discharge Summary/Plan Comment DC Time >30 min.: No - Patient Data Vitals - Most Recent: Last Vital Signs Temp 96.4 F 03/27/18 07:00 Pulse 79 03/27/18 15:27 Resp 20 03/27/18 15:27 BP 110/53 L 03/27/18 15:27 Pulse Ox 98 03/27/18 15:27 Orthostatic Blood Pressure [ 172/84 Standing] Orthostatic Blood Pressure [ 170/75 Sitting] Orthostatic Blood Pressure [ 155/65 Supine] Weight - Most Recent: 150 lb Lab Results - Last 24 hrs: Laboratory Results - last 24 hr 03/26/18 03/27/18 Range/Units 21:15 04:30 Troponin I < 0.017 < 0.017 (0.000-0.056) ng/mL Med Orders - Current: Current Medications Acetaminophen (Tylenol) 650 mg PO Q4H PRN PRN Reason: Pain (Mild 1-3)/fever Last Admin: 03/27/18 07:46 Dose: 650 mg Amiodarone HCl (Cordarone) 400 mg PO DAILY [facility] Last Admin: 03/27/18 09:51 Dose: Not Given Aspirin (Halfprin) 81 mg PO DAILY [facility] Last Admin: 03/27/18 09:47 Dose: 81 mg Furosemide (Lasix) 40 mg PO DAILY [facility] Last Admin: 03/27/18 09:49 Dose: 40 mg Losartan Potassium (Cozaar) 12.5 mg PO DAILY [facility] Last Admin: 03/27/18 09:51 Dose: Not Given Morphine Sulfate (Morphine) 2 mg IVPUSH Q30M PRN PRN Reason: Chest Pain Apixaban (Elicuis) 5 (Mg TabPom) 5 mg PO DAILY [facility] Last Admin: 03/27/18 09:47 Dose: 5 mg Ondansetron HCl (Zofran) 4 mg IV Q4H PRN PRN Reason: Nausea/Vomiting Pravastatin Sodium (Pravachol) 40 mg PO BEDTIME [facility] Last Admin: 03/27/18 12:34 Dose: Not Given Senna/Docusate Sodium (Senna Plus) 1 tab PO BID PRN PRN Reason: Constipation Sodium Chloride (Saline Flush) 10 ml FLUSH ASDIRECTED PRN PRN Reason: Keep Vein Open Discontinued Medications Aspirin (Aspirin) 324 mg PO ONETIME ONE Stop: 03/26/18 14:47 Last Admin: 03/26/18 14:54 Dose: 324 mg Aspirin (Aspirin) 81 mg PO DAILY [facility] Nitroglycerin (Nitrostat) 0.4 mg SL Q5M PRN PRN Reason: Chest Pain Nitroglycerin (Nitrostat) 0.4 mg SL Q5M PRN PRN Reason: Chest Pain Stop: 03/27/18 16:34 - Exam General: Reports: Alert, Oriented, Cooperative, No Acute Distress Lungs: Reports: Clear to Auscultation, Normal Respiratory Effort Cardiovascular: Reports: Regular Rate, Regular Rhythm, No Murmurs GI/Abdominal Exam: Soft, Non-Tender, No Organomegaly, No Distention *Q Meaningful Use (DIS) - VTE *Q VTE Pharmacological Contraindications *Q: High INR Value
== END 2018-03-27 17:03 | disposition home or self-care (01) ==
LOC: JP.ED 14:39 → JP.ICU 16:28
PROVIDERS: ADMIT Hospitalist; ATTEND Hospitalist
DX: R07.89 Other chest pain (principal); R55 Syncope and collapse; I48.0 Paroxysmal atrial fibrillation; I25.10 Atherosclerotic heart disease of native coronary artery without angina pectoris; E78.00 Pure hypercholesterolemia, unspecified; I10 Essential (primary) hypertension; G43.909 Migraine, unspecified, not intractable, without status migrainosus; Z86.79 Personal history of other diseases of the circulatory system; Z95.1 Presence of aortocoronary bypass graft; Z79.82 Long term (current) use of aspirin; Z79.899 Other long term (current) drug therapy; Z88.5 Allergy status to narcotic agent; Z86.010 Personal history of colon polyps; Z90.89 Acquired absence of other organs; Z90.49 Acquired absence of other specified parts of digestive tract
CPT/HCPCS: 36415; 71045; 78452; 80053; 81001; 82550; 83880; 84484; 85025; 93005; 93010; 93017; 93018; 99285; A9270; A9500; G0378

== ENCOUNTER 2018-05-09 09:53 | Emergency (ER) | payer MEDICARE, BC ==
[2018-05-09 10:00] VITALS: BP 137/75
--- NOTE | 2018-05-09 10:29 | EDM.PDOC ---
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 She had decreased mental status and decreased ability to swallow today, labs were drawn and she was found to have a BUN of 206 and a creatinine of 6.8 so was sent to the emergency room. Patient does respond to voice. She cannot communicate. - Related Data Allergies Allergy/AdvReac Type Severity Reaction Status Date / Time codeine AdvReac Nausea Verified 08/17/17 03:10 Home Meds: Home Meds Aspirin [Ziggy Chewable Aspirin] 81 mg PO DAILY 08/17/17 [History] Losartan Potassium 12.5 mg PO DAILY 08/17/17 [History] Metoprolol Succinate [Toprol XL] 50 mg PO DAILY 08/17/17 [History] Pravastatin [Pravachol] 40 mg PO BEDTIME 08/17/17 [History] Amiodarone HCl [Pacerone] 400 mg PO DAILY 03/26/18 [History] Apixaban [Eliquis] 5 mg PO DAILY 03/26/18 [History] Calcium Carbonate/Vitamin D3 [Calcium 600 + Vit D 200] 1 tab PO DAILY 03/26/18 [ History] Furosemide 40 mg PO DAILY 03/26/18 [History] Nitroglycerin [Nitrostat] 0.4 mg PO ASDIRECTED 03/26/18 [History] Past Medical History HEENT History: Reports: Cataract Cardiovascular History: Reports: Afib, Bypass, CAD, High Cholesterol, Hypertension, Stents Respiratory History: Reports: Pneumonia, Recurrent Gastrointestinal History: Reports: Colon Polyp Genitourinary History: Reports: Acute Renal Failure [employer] History: Reports: Musculoskeletal History: Reports: Fracture Neurological History: Reports: CVA, Migraines Other Neuro History: Hemmorgic stroke Oncologic (Cancer) History: Reports: Breast - Past Surgical History HEENT Surgical History: Reports: Tonsillectomy Cardiovascular Surgical History: Reports: Coronary Artery Bypass, Coronary Artery Stent GI Surgical History: Reports: Appendectomy, Cholecystectomy, Colonoscopy Oncologic Surgical History: Reports: Lumpectomy Social & Family History - Tobacco Use Smoking Status *Q: Never Smoker - Caffeine Use Caffeine Use: Reports: Coffee - Recreational Drug Use Recreational Drug Use: No ED ROS GENERAL - Review of Systems Review Of Systems: Unable To Obtain ED EXAM, GENERAL - Physical Exam Exam: See Below Exam Limited By: Physical Impairment General Appearance: Alert, No Apparent Distress Eye Exam: Bilateral Eye: EOMI (Will not open eyes on command but will look around) Head: Atraumatic Respiratory/Chest: No Respiratory Distress Cardiovascular: Irregularly Irregular GI/Abdominal: Soft, Non-Tender Neurological: Other (Will withdraw her lower extremities with plantar stimulation) Psychiatric: Flat Affect Course - Vital Signs Last Recorded V/S: Last Vital Signs Temp 96.9 F 05/09/18 10:00 Pulse 81 05/09/18 10:00 Resp 18 05/09/18 10:00 BP 137/75 05/09/18 10:00 Pulse Ox 97 05/09/18 10:00 - Re-Assessments/Exams Free Text/Narrative Re-Assessment/Exam: 05/09/18 11:53 No intervention was taken. After a long discussion with the , the decision was made to discharge the patient back to the detention for comfort cares. Departure - Departure Time of Disposition: 13:40 Disposition: DC/Tfer to [facility] Condition: Critical Clinical Impression: CVA, Cerebrovascular accident Acute renal failure Qualifiers: Acute renal failure type: unspecified Qualified Code(s): N17.9 - Acute kidney failure, unspecified - Discharge Information Instructions: Acute Kidney Injury, Adult Referrals: PCP,None [Primary Care Provider] - Forms: ED Department Discharge Care Plan Goals: Patient is to be discharged back to the detention for comfort cares.
== END 2018-05-09 13:40 ==
LOC: JP.ED 09:53
DX: I63.9 Cerebral infarction, unspecified (principal); N17.9 Acute kidney failure, unspecified; I25.810 Atherosclerosis of coronary artery bypass graft(s) without angina pectoris; I48.91 Unspecified atrial fibrillation; I10 Essential (primary) hypertension; Z87.01 Personal history of pneumonia (recurrent); Z86.73 Personal history of transient ischemic attack (TIA), and cerebral infarction without residual deficits; Z88.5 Allergy status to narcotic agent; Z79.899 Other long term (current) drug therapy; Z79.82 Long term (current) use of aspirin; Z95.1 Presence of aortocoronary bypass graft
CPT/HCPCS: 99282; 99285